=== PATIENT | female | born 1990 | race Caucasian/White ===

== ENCOUNTER 2019-11-12 03:53 | Emergency (ER) | payer MEDICAID ==
[~2019-11-12] VITALS: Ht 157.5 cm; Wt 82.7 kg
[2019-11-12 04:00] VITALS: BP 134/78
== END 2019-11-12 04:03 ==
LOC: ER 03:54
DX: S00.83XA Contusion of other part of head, initial encounter (principal); F17.200 Nicotine dependence, unspecified, uncomplicated; F10.99 Alcohol use, unspecified with unspecified alcohol-induced disorder; F12.90 Cannabis use, unspecified, uncomplicated; V47.5XXA Car driver injured in collision with fixed or stationary object in traffic accident, initial encounter; Y93.89 Activity, other specified; Y92.488 Other paved roadways as the place of occurrence of the external cause; Y99.8 Other external cause status; Y90.9 Presence of alcohol in blood, level not specified
CPT/HCPCS: 99283

== ENCOUNTER 2023-05-21 00:17 | Emergency (ER) | payer MEDICAID ==
[~2023-05-21] VITALS: Ht 157.5 cm; Wt 63.6 kg
[2023-05-21 00:21] VITALS: BP 141/75; PULSE 144; TEMP 97.6; O2SAT 96
[2023-05-21] MEDS ORDERED: ketorolac trometh. 30mg/ml inj. IM ONE (00:30)
[2023-05-21 00:41] VITALS: RESP 20
== END 2023-05-21 01:40 ==
LOC: ER 00:17
DX: S70.02XA Contusion of left hip, initial encounter (principal); M54.50 Low back pain, unspecified; F12.90 Cannabis use, unspecified, uncomplicated; F15.90 Other stimulant use, unspecified, uncomplicated; Z72.89 Other problems related to lifestyle; X58.XXXA Exposure to other specified factors, initial encounter; Y93.89 Activity, other specified; Y92.89 Other specified places as the place of occurrence of the external cause; Y99.8 Other external cause status
CPT/HCPCS: 73502; 96372; 99283; J1885